=== PATIENT | male | born 1960 | race Caucasian/White ===

== ENCOUNTER 2022-09-15 09:31 | Day surgery (SDC) | payer BC ==
[2022-09-12 09:00] VITALS: BMI 31.6
[2022-09-15] MEDS ORDERED: PROPOFOL 20 ML ONE ×2 (10:53→11:08)
[2022-09-15] MEDS ORDERED: Lidocaine 1% PF 5 ML VIAL ONE (11:08)
== END 2022-09-15 12:00 | disposition home or self-care (01) ==
LOC: CSHSDC 09:31
PROVIDERS: ATTEND Internal Medicine Gastroenterology
PROC: 0DJD8ZZ Inspection of Lower Intestinal Tract, Via Natural or Artificial Opening Endoscopic (ICD-10-PCS; principal; 2022-09-15)
DX: Z12.11 Encounter for screening for malignant neoplasm of colon (principal); K64.8 Other hemorrhoids; E78.5 Hyperlipidemia, unspecified; G47.30 Sleep apnea, unspecified; D75.1 Secondary polycythemia; J30.2 Other seasonal allergic rhinitis; Z88.5 Allergy status to narcotic agent
CPT/HCPCS: J2704